=== PATIENT | male | born 1935 | race Caucasian/White ===

== ENCOUNTER 2019-03-17 21:05 | Observation (INO) ==
[2019-03-17 21:30] LABS: BASO# 0.03 X1000 (0.0-0.2); BASO% 0.3 % (0.0-0.8); EOS% 2.2 % (0.0-10.0); HEMATOCRIT 41.8 % (42.0-52.0); HEMOGLOBIN 14.4 g/dL (14.0-18.0); IMM GRAN# 0.02 X1000 (0.0-0.04); IMM GRAN% 0.2 % (0.0-0.5); LYMPH# 2.95 X1000 (1.2-3.4); LYMPH% 32.5 % (20.5-51.1); MCH 32.5 PG (27-31); MCHC 34.4 g/dL (33-37); MCV 94.4 FL (81-99); MONO# 0.93 X1000 (0.11-0.59); MONO% 10.2 % (1.7-9.3); NEUT# 4.96 X1000 (1.4-6.5); NEUT% 54.6 % (42.2-75.2); PLT 207 X1000 (130-400); RBC 4.43 XMIL (4.7-6.1); RDW 12.3 % (11.5-14.5); WBC 9.09 X1000 (4.8-10.8)
[2019-03-17 21:43] LABS: INR 0.93; PROTIME 12.9 Seconds (11.0-16.0)
[2019-03-17 21:44] LABS: PTT 29.9 Seconds (22.3-41.8)
[2019-03-17 21:46] LABS: AGAP 12; ALBUMIN 4.5 g/dL (3.5-5.0); ALKALINE PHOSPHATASE 98 U/L (32-122); BUN 21 mg/dL (8-22); CALCIUM 9.3 mg/dL (8.8-10.2); CHLORIDE 104 mmol/L (98-107); COSMO 283; CREATININE 0.8 mg/dL (0.7-1.2); ESTIMATED GFR > 60; GLUCOSE 111 mg/dL (70-104); GOT 23 U/L (10-34); GPT 20 U/L (10-44); POTASSIUM 4.5 mmol/L (3.5-5.1); SODIUM 140 mmol/L (136-145); TCO2 24 mmol/L (25-35); TOTAL PROTEIN 7.1 g/dL (6.3-8.3)
--- NOTE | 2019-03-17 22:01 | Diag Imaging Result Doc PS360 ---
EXAM: CHEST-1 VIEW - 03/17/2019 HISTORY: chest pain TECHNIQUE: Portable chest COMPARISON: None. FINDINGS: Heart size appears within normal limits. There is mild tortuosity of the thoracic aorta. The lungs appear clear. There is no pleural effusion or pneumothorax identified. IMPRESSION: No evidence of acute disease. Electronically signed by Jabari St 03/17/2019 9:58 PM
--- NOTE | 2019-03-17 22:44 | PROVIDER DOCUMENTATION ---
This chart was entered by Minoo Salazar Scribe, acting as scribe for Joshua Stewart MD. 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 pt reports relief with 81mg ASA, no nitro taken. pt admits remote hx of PA. pt denies any other complaints, pain 04/17 currently. pt reports MANUEL was 194/90 at home. Location: reports: central Chest Pain Radiation: reports: no radiation Quality of Pain: reports: dull Severity in ED: mild Onset/Duration: 1-3 hours ago Timing: still present, improving Context/Activities at Onset: reports: rest Modifying Factors: improves with: analgesics (ASA 81mg at home-improved pain) Associated Symptoms: denies: diaphoresis, fatigue, fever/chills, nausea, shortness of breath Nitro Today/Relief: no nitro taken today Aspirin Treatment Today: 81 mg x 1, provided at home Prior Chest Pain/Cardiac Workup: reports: heart attack (20+yrs ago) Similar Symptoms Previously?: No Recently Seen Here or By Another Healthcare Provider: No Review of Systems - Adult - REVIEW OF SYSTEMS - ADULT Constitutional: denies: fever, fatique Eyes: reports: no symptoms reported Ears, Nose, Mouth & Throat: reports: no symptoms reported Cardiovascular: reports: chest pain. denies: palpitations, syncope Respiratory: denies: cough, dyspnea on exertion, shortness of breath, wheezing Gastrointestinal: denies: abdominal pain, nausea, vomiting Genitourinary: reports: no symptoms reported Musculoskeletal: denies: back pain, joint pain, neck pain Integumentary: reports: no symptoms reported Neurological: denies: dizziness/vertigo, headache/migraines Psychiatric: reports: no symptoms reported Endocrine: reports: no symptoms reported Hematologic/Lymphatic: reports: no symptoms reported Allergic/Immunologic: reports: no symptoms reported All Other Systems: Reviewed and Negative Past History - Adult - PAST MEDICAL HISTORY-ADULT Review of Records: reports: Old Records Reviewed, Nursing Assessment Review, Medications Reviewed, Social history reviewed & non-contributory. Major Childhood Illnesses: reports: denies history Cardiovascular: reports: denies history Respiratory: reports: denies history Gastrointestinal: reports: denies history Obstetrical/Gynecological: reports: denies history Genitourinary: reports: denies history Musculoskeletal: reports: denies history Neurological: reports: denies history Endocrine/Immune: reports: denies history Other Conditions: reports: denies history - IMMUNIZATION STATUS Childhood Immunizations: See Nurse Assessment Flu Vaccine: See Nurse Assessment - FAMILY HISTORY Family History: reviewed, not pertinent - SOCIAL HISTORY Smoking: denies Substance Use: denies Living Situation: family Physical Exam-General - PHYSICAL EXAM-ADULT Initial Vital Signs Reviewed: Yes - CONSTITUTIONAL General Appearance: appears well, alert, no apparent distress - EYES Eyes: PERRL/EOMI - HEAD, EARS, NOSE, MOUTH & THROAT HENMT: normocephalic/atraumatic, moist mucous membranes, normal ENT inspection - NECK Neck: non-tender, full range of motion, supple, normal inspection - RESPIRATORY Respiratory: chest non-tender, lungs clear, normal breath sounds, no respiratory distress, no accessory muscle use - CARDIOVASCULAR Cardiovascular: normal peripheral pulses, regular rate, rhythm, no edema - GASTROINTESTINAL (ABDOMEN) Abdominal Exam: normal bowel sounds, non tender, soft - LYMPHATIC Lymphatic: no adenopathy - MUSCULOSKELETAL Back Exam: normal inspection, no CVA tenderness, no vertebral tenderness Extremity: normal range of motion, non-tender, normal gait, normal inspection - SKIN Integumentary: normal color, normal turgor, warm/dry - NEUROLOGIC Neurologic: grossly normal, no motor/sensory deficits - PSYCHIATRIC Psych/Mental Status: normal mood/affect, normal thought content, normal thought process, oriented x 3 - HEART Score HEART Score: History: Moderately Suspicious HEART Score: ECG: Non-Specific Repolarization Disturbance/LBBB/PM HEART Score: Age: > or = 65 Years HEART Score: Risk Factors for Atherosclerotic Disease: > or = 3 Risk Factors or History of Atherosclerotic Disease HEART Score: Troponin: < or = Normal Limit Total HEART Score:: 6 Progress - PLAN OF CARE/RESULTS Progress/Plan/Lab Results: Vital Signs - 8 hr 03/17/19 21:11 Temperature 97.7 F Pulse Rate 62 Respiratory Rate 14 Blood Pressure 186/92 O2 Sat by Pulse Oximetry 98 Laboratory Results - last 24 hr 03/17/19 03/17/19 03/17/19 21:17 21:17 21:17 WBC 9.09 RBC 4.43 L Hgb 14.4 Hct 41.8 L MCV 94.4 MCH 32.5 H MCHC 34.4 RDW Std Deviation 12.3 Plt Count 207 MPV 10.0 Immature Gran % (Auto) 0.2 Neut % (Auto) 54.6 Lymph % (Auto) 32.5 Crosby % (Auto) 10.2 H Eos % (Auto) 2.2 Baso % (Auto) 0.3 Immature Gran # (Auto) 0.02 Neut # (Auto) 4.96 Lymph # (Auto) 2.95 Crosby # (Auto) 0.93 H Eos # (Auto) 0.20 Baso # (Auto) 0.03 PT INR PTT (Actin FS) Sodium 140 Potassium 4.5 Chloride 104 Carbon Dioxide 24 L Anion Gap 12 BUN 21 Creatinine 0.8 Estimated GFR/1.73 m2 > 60 BUN/Creatinine Ratio 26 Glucose 111 H Calculated Osmolality 283 Calcium 9.3 Total Bilirubin 0.30 AST 23 ALT 20 Alkaline Phosphatase 98 Troponin T Gnz-A-Endkmuguwyu Pept 38 Total Protein 7.1 Albumin 4.5 Globulin 3.0 Albumin/Globulin Ratio 2.0 03/17/19 03/17/19 21:17 21:17 WBC RBC Hgb Hct MCV MCH MCHC RDW Std Deviation Plt Count MPV Immature Gran % (Auto) Neut % (Auto) Lymph % (Auto) Crosby % (Auto) Eos % (Auto) Baso % (Auto) Immature Gran # (Auto) Neut # (Auto) Lymph # (Auto) Crosby # (Auto) Eos # (Auto) Baso # (Auto) PT 12.9 INR 0.93 PTT (Actin FS) 29.9 Sodium Potassium Chloride Carbon Dioxide Anion Gap BUN Creatinine Estimated GFR/1.73 m2 BUN/Creatinine Ratio Glucose Calculated Osmolality Calcium Total Bilirubin AST ALT Alkaline Phosphatase Troponin T < 0.010 Oql-Z-Pnvejqwucna Pept Total Protein Albumin Globulin Albumin/Globulin Ratio Orders Category Date Time Status CHEST-1 VIEW [RAD] Stat Exams 03/17/19 21:08 Completed CBC WITH ELECTRONIC DIFF [HEME] Stat Lab 03/17/19 21:17 Completed COMPREHENSIVE METABOLIC PANEL [CHEM] Stat Lab 12/10/19 21:17 Completed PRO B-NATRIURETIC PEPTIDE Stat Lab 03/17/19 21:17 Completed PT [PROTIME WITH INR] [COAG] Stat Lab 03/17/19 21:17 Completed PTT [COAG] Stat Lab 03/17/19 21:17 Completed TROPONIN T Stat Lab 03/17/19 21:17 Completed EKG [EKG] Stat Ther 03/17/19 21:08 Ordered Result Diagrams: 03/17/19 21:17 03/17/19 21:17 - EKG 1 Time of EKG reading by physician:: 21:12 EKG Read and Signed by:: Joshua Stewart EKG Interpretation (*Must complete 3 of following elements*): Abnormal Rate: 55 Rhythm: sinus bradycardia with 1st degree av block [place]: normal PA Interval: normal ST Wave: normal - CONSULTS/PCP/HOSPITALIST Notification #1 *Consult/PCP/Hospitalist*: Dr Taylor Time Discussed: 22:39 Reason/Comments: asked for repeat trops Consult Disposition: Admit Departure - Departure Date of Disposition Decision: 03/17/19 Time of Disposition Decision: 22:39 DIAGNOSIS: Chest pain Disposition: ADMITTED INPATIENT 09 Certified Medical Emergency: Emergent Condition: Fair Referrals and Follow-Ups: Sohail Mejía MD [Primary Care Provider] - - Critical Care Note This patient required my direct & personal management of CC.: No Attestation - Physician/ VANESSA Attestation Patient care was provided by Advanced Practice Provider:: No The physician spent face to face time with patient:: Yes Advanced Practice Provider documentation review:: Supervising physician onsite and consulted in the evaluation and care of this patient. The physician did have a face to face encounter with the patient. This chart was documented by the indicated scribe, (Minoo Salazar Scribe) and accurately reflects the services I performed and decisions made by me, Joshua Stewart MD, as attested by the provider's signature.
[2019-03-17] MEDS ORDERED: ZOFRAN IV PRN (22:45)
[2019-03-17] MEDS ORDERED: MORPHINE IV PRN (22:45)
--- NOTE | 2019-03-18 06:08 | EKG Report ---
Test Performed on : 03/17/2019 9:12:52 PM Test Reason : cp Blood Pressure : / mmHG Vent. Rate : 055 BPM Atrial Rate : 055 BPM P-R Int : 232 ms QRS Dur : 098 ms QT Int : 406 ms P-R-T Axes : 071 -06 038 degrees QTc Int : 388 ms Sinus bradycardia. with 1st degree AV block. Otherwise normal ECG No previous ECGs available Unconfirmed Result
[2019-03-18] MEDS ORDERED: MORPHINE IV PRN (06:35)
[2019-03-18] MEDS ORDERED: TOPROL XL PO SCH (09:00)
[2019-03-18] MEDS ORDERED: ASPIRIN EC PO SCH (09:00)
[2019-03-18] MEDS ORDERED: ASPIRIN PO SCH (09:00)
--- NOTE | 2019-03-18 13:49 | HISTORY AND PHYSICAL ---
CHIEF COMPLAINT: Chest pain. HISTORY OF PRESENT ILLNESS: This is an 83-year-old gentleman who presented to the emergency room complaining of chest pain that started about an hour prior to coming to the emergency room. He denied any accompanying symptoms. He described this as a dull type pain that was in his mid chest. He could identify no exacerbating factors. He did state that the pain resolved within an hour of taking a baby aspirin, and the pain has not recurred since. He denied any syncope or dizziness, any palpitations, any nausea or vomiting. No shortness of breath. PAST MEDICAL HISTORY: 1. Prior CVA. 2. Hypertension. 3. History of CAD status post DE and stents. PAST SURGICAL HISTORY: Cardiac stents, nose reconstruction. SOCIAL HISTORY: He denies alcohol, tobacco, or illicit drug use. FAMILY HISTORY: Positive for hypertension and diabetes. ALLERGIES: No known drug allergies. HOME MEDICATIONS: A list will be obtained by the nursing staff and, once verified, will review and restart as appropriate. REVIEW OF SYSTEMS: Discussed with the patient with pertinent positives stated in the HPI. He denied any syncope, dizziness, any palpitations, any shortness of breath, cough, fever, chills, PND, orthopnea, any nausea, vomiting, diarrhea, constipation, black or bloody vomitus or stools, any hematuria, dysuria, frequency, urgency. PHYSICAL EXAMINATION: GENERAL: This is an 83-year-old gentleman, who was sitting up in the room in no distress. VITAL SIGNS: Blood pressure is 141/66 with a heart rate of 56, respirations are 18, temperature is 97.4 degrees with room air saturations 100%. EYES: Pupils are equal, round, react to light. EOMS are intact. Sclerae are anicteric. HENT: Head is normocephalic, atraumatic. Mucous membranes are moist. NECK: Supple with trachea midline. CARDIOVASCULAR: Regular rate and rhythm. S1 and S2 appreciated. He has no lower extremity edema. Calves are nontender bilateral with peripheral pulses palpable x4 extremities. PULMONARY: Breath sounds are clear with no increased work of breathing noted. Chest rises and falls symmetric to respiration. Chest wall is nontender to palpation. GASTROINTESTINAL: Abdomen is soft, nontender, nondistended with bowel sounds in all 4 quadrants. GENITOURINARY: No CVA nor suprapubic tenderness. NEUROLOGIC: He is alert and oriented x3. SKIN: Warm and dry. LABS: WBC is 9 with hemoglobin 14.4, hematocrit 41.8, platelets of 207. INR is 0.93. Sodium 140, potassium 4.5. BUN 21, creatinine 0.8 with a glucose of 111. Troponins are negative on multiple occasions. X-RAYS: 1. Chest x-ray reveals no evidence of acute disease. 2. EKG reveals sinus jhony with a first-degree block at a rate of 55. ASSESSMENT AND PLAN: 1. Chest pain. Continue to trend troponins. Echocardiogram has been ordered. We will repeat an electrocardiogram. He will continue on telemetry. 2. Hypertension. We will identify his home medications and continue. 3. Bradycardia. The patient cannot tell if he has had bradycardia in the past. We will hold metoprolol, and he will continue telemetry monitors of heart rate. 4. History of coronary artery disease. Aware. 5. History of prior cerebrovascular accident. Aware. Plan was discussed with Dr. Taylor. Further treatments pending hospital course. Dictated by GRACE Carpio for Luis Fernando Taylor MD cc: GRACE Carpio MD
[2019-03-18 14:29] VITALS: BP 145/75
--- NOTE | 2019-03-18 21:02 | HISTORY AND PHYSICAL ---
ADDENDUM: Patient seen and examined by myself. Full note dictated and discussed with nurse practitioner. Patient presented to the ER with his blood pressure elevated at 180, currently back down to 140. His blood pressure has improved, as has his chest pain. We are going to admit him to the hospital, rule out MA, check an echo, and will follow. cc: Luis Fernando Taylor MD
--- NOTE | 2019-03-19 09:45 | ECHO REPORT ---
ORDER DATE: 03/18/2019 ECHOCARDIOGRAPHIC MEASUREMENTS: 1. Left ventricular internal diameter diastole 4.1. 2. Septal thickness 0.9. 3. Posterior wall thickness 0.7. 4. Left ventricular internal diameter in systole 2.7. 5. Aortic root 3.1. 6. Left atrium 2.9. SUMMARY: 1. Technically difficult study due to limited acoustic window quality. 2. Aortic valve is trileaflet and opens adequately on 2-dimensional images. The peak gradient across the aortic valve is less than 10 mmHg. Mitral and tricuspid valves are without evidence of structural abnormality, while pulmonic valve was not well demonstrated. There is trace mitral regurgitation and trace tricuspid regurgitation. The aortic root is normal in size. 3. Normal left ventricular dimensions demonstrated. The estimated left ventricular ejection fraction appears to be at least 65%. No obvious regional wall motion abnormality can be appreciated. Doppler suggests grade 1 left ventricular diastolic dysfunction. Left atrium, right atrium, right ventricle are normal in size with grossly preserved right ventricular systolic function. 4. No pericardial effusion. 5. Inferior vena cava not well demonstrated. cc: MD Luis Fernando Romano MD
--- NOTE | 2019-03-20 00:20 | DISCHARGE SUMMARY ---
ADMISSION DATE: 03/17/2019 DISCHARGE DATE: 03/18/2019 DISCHARGE DIAGNOSES: 1. Chest pain, resolved. 2. Hypertension, stable. 3. Bradycardia. 4. Known coronary artery disease. 5. History of cerebrovascular accident. CONSULTATIONS: None. PROCEDURES: None. BRIEF HOSPITAL COURSE: The patient is an 83-year-old male who presented to the hospital secondary to chest pain. Thankfully, this resolved. On discharge, he is awake, alert. He states that he wants to go home. He had an echocardiogram that was normal. His enzymes were negative and therefore he will be discharged home. DISCHARGE MEDICATIONS: Aspirin, Toprol-XL 50 daily. DISPOSITION: The patient will be discharged home. He will follow up outpatient with his primary care. He may require an outpatient stress test, although currently his enzymes are negative. His symptoms have resolved and the patient declines to stay in the hospital overnight for a stress test tomorrow. Therefore, he will be discharged home. Discussed with him to avoid smoking. cc: Luis Fernando Taylor MD
--- NOTE | 2019-03-20 15:12 | DISCHARGE SUMMARY ---
ADMISSION DATE: 03/17/2019 DISCHARGE DATE: 03/18/2019 DIAGNOSES: 1. Chest pain resolved. 2. Hypertension resolved. 3. Bradycardia resolved after holding metoprolol. 4. History of coronary artery disease. 5. History of prior cerebrovascular accident. DIAGNOSTICS: 1. Chest x-ray revealed no evidence of acute disease. 2. Echocardiogram revealed an ejection fraction of 65%. No obvious wall motion abnormality identified, grade 1 left ventricular diastolic dysfunction. No pericardial effusion. 3. EKG sinus bradycardia with a first-degree AV block at a rate of 55. HOSPITAL COURSE: Mr. Gallegos presented to the emergency room complaining of chest pain that resolved within an hour of taking a baby aspirin and never recurred. He ruled out by cardiac enzymes as well as EKG. He was noted to be bradycardic with heart rates that were 54 to 56. His metoprolol was held the morning of the and heart rates did increase to the 60s by the midafternoon. The patient states he has never been told he had bradycardia, in fact Lopressor was started for tachycardia. We continued his home medications other than the Lopressor. DISCHARGE PHYSICAL EXAM: Vital Signs: Blood pressure 145/75 with heart rate of 62, respirations 16, temperature is 97.9 degrees oral with room air saturations 94 to 97 percent. Cardiovascular: Regular rate and rhythm. S1, S2 appreciated. He has no lower extremity edema. Calves are nontender bilateral with peripheral pulses palpable x4 extremities. Pulmonary: Breath sounds are clear with no increased work of breathing noted. Chest rises and falls symmetric respiration. Chest wall is nontender to palpation. Gastrointestinal: Abdomen soft, nontender, nondistended with bowel sounds in all 4 quadrants. Neurologic: He is alert and oriented x3. Skin: Warm and dry. DISCHARGE MEDICATIONS: 1. Aspirin 81 mg p.o. daily. 2. Metoprolol 50 mg p.o. daily - do not take if heart rate less than 60. FOLLOWUP: Dr. Mejía. He needs to call the morning to be seen within the next week. He was instructed to call to be seen sooner return to the ER for any syncope, dizziness, chest pain, palpitations, shortness of breath, temperature greater than 101, any nausea, vomiting, diarrhea, constipation, black or bloody vomitus or stools, hematuria, dysuria, frequency, urgency or for any questions or concerns that he may have. He is being discharged home in stable condition with family members. TIME SPENT: Greater than 30 minutes. Dictated by GRACE Carpio for Luis Fernando Taylor MD cc: GRACE Carpio MD [facility]
== END 2019-03-18 18:10 | disposition home or self-care (01) ==
LOC: P.ED 21:05 → INTOOBSV 23:28 → P.MEDSURG 23:28
PROVIDERS: ADMIT Family Medicine